=== PATIENT | female | born 1985 | race Two or more races ===

== ENCOUNTER 2021-05-24 08:13 | Day surgery (SDC) | payer OTHER, SELFPAY ==
[2021-05-20 12:10] VITALS: BMI 25.1
[2021-05-24 08:24] VITALS: RESP 18; TEMP 36.2; O2SAT 100
[2021-05-24 08:50] LABS: UPreg QC Valid YES; Urine Pregnancy NEGATIVE (NEGATIVE)
[2021-05-24] MEDS: Lactated Ringers 1,000 ML 50 ML IVCONT (08:52)
--- NOTE | 2021-05-24 09:27 | HO.ANESPROP2 ---
HPI - Anesthesia Eval Consult details Narrative: GERD, Rectal Bleeding PMFSH Past Medical History Medical History (Updated 05/20/21 @ 12:00 by Melani Swenson RN) HTN (hypertension) Mild asthma Family History Family history of problems with anesthesia: No Surgical History Surgical History (Updated 05/20/21 @ 12:10 by Melani Swenson RN) No pertinent past surgical history History of Problems with Anesthesia: No Social History Social History Patient Tobacco Use Status: Tobacco use Unknown Advance Directives: No Advance Directives Information Provided: Yes Advance Directives on File: No Meds Allergies Allergy/AdvReac Type Severity Reaction Status Date / Time No Known Allergies Allergy Verified 05/20/21 12:13 Active Medications: Current Medications Lactated Ringer's (Lr) 1,000 mls @ 50 mls/hr IVCONT .Q20H JOSHUA Last Admin: 05/24/21 08:52 Dose: 50 mls/hr Documented by: Sodium Biphosphate/Sodium Phosphate (Sodium Phosphate,[place]-Dibasic 133 Ml Enema) 133 ml VT ONCE PRN PRN Reason: Poor Colonoscopy Prep Results Home Medications Medication Instructions Recorded Confirmed Last Taken Type L norgest/E estradiol-E estrad 1 tab PO DAILY 05/20/21 05/20/21 Unknown History 0.10 mg-20 mcg (84)/10 mcg(7) tabs,3mos Exam Exam Date and Time: May 24, 2021 0927 Height,Weight and Vital Signs: Height 5 ft 3 in Weight 64.41 kg Last Vital Signs Temp 97.1 F 05/24/21 08:24 Resp 18 05/24/21 08:24 Pulse Ox 100 05/24/21 08:24 Pertinent Lab Results Pertinent Lab Results: Laboratory Tests 05/24/21 08:28 Urine Test NEGATIVE Airway Mallampati Class: II TM Dist: >3cm Neck ROM: Full Loose/Missing/Broken Teeth: No Heart: [id number] Lungs: cta b/l Assessment and Plan Assessment Anesthesia Assessment: Anesthesia Plan Discussed and Chart Reviewed Final Anesthetic Review Family History of Problems with Anesthesia: No History of Problems with Anesthesia: No NPO: Yes ASA Class: I Final Preanesthetic Review: No Changes in Pt Med Stat, Meds/Allgs Chart Reviewed and Anes Risks/Benef Reviewed Patient Risk: Low Procedure Risk: Low Assessment/Block/Sedation in SS: Assess/Block/Sedation-SS Anesthetic Plan Anesthetic Plan: MAC: and Agree w/ Assess. and Plan Disposition: Standard PACU
[2021-05-24 10:41] VITALS: BP 122/64; PULSE 77; RESP 14; TEMP 36.3; O2SAT 99
--- NOTE | 2021-05-24 10:43 | PM.OP ---
Brief Operative Note Date of Service: 05/24/21 Pre-op diagnosis: GERD, Rectal bleeding Post-op diagnosis: other (Small hiatal hernia, Internal hemorrhoids) Procedure: EGD, Colonoscopy to the cecum and TI Surgeon: Jluis Bell Anesthesia: MAC Was an Care Management Assistant used for this Procedure?: No Estimated blood loss (mL): 0 Pathology: none sent Condition: stable Disposition: PACU
[2021-05-24 10:56] VITALS: BP 117/69; PULSE 76; RESP 16; TEMP 36.3; O2SAT 100
--- NOTE | 2021-05-24 11:11 | OP_ITS ---
SURGEON: Jluis Bell MD INDICATIONS: The patient presents for evaluation of gastroesophageal reflux and occasional hematochezia. Full consent was obtained from her for this, including risks of bleeding and perforation. PREOPERATIVE DIAGNOSIS: POSTOPERATIVE DIAGNOSIS: PROCEDURE PERFORMED: ESTIMATED BLOOD LOSS: COMPLICATIONS: ANESTHESIA: Monitored anesthesia care. ASSISTANTS: SPECIMENS: PROCEDURE: Esophagogastroduodenoscopy and colonoscopy to the cecum and terminal ileum. PREOPERATIVE DIAGNOSES: Gastroesophageal reflux and hematochezia. POSTOPERATIVE DIAGNOSES: Gastroesophageal reflux and hematochezia, small hiatal hernia, small internal hemorrhoids. DESCRIPTION OF PROCEDURE: The patient was placed in the left lateral decubitus position. The Olympus video gastroscope was passed in the posterior oropharynx and upper esophagus under direct vision. Scope was passed slowly into the distal esophagus. The gastroesophageal junction appeared normal at 36 cm. There was no sign of any esophagitis nor Turcios's esophagus. Scope entered into the stomach, there was a relatively small hiatal hernia. Scope was advanced to pylorus and duodenum was cannulated to the descending portion. The duodenum including the bulb appeared normal without mass or ulceration. The scope was withdrawn back in the stomach. The gastric antrum and body appeared normal with good peristalsis. Scope was retroflexed visualizing the proximal stomach carefully, which appeared normal, without any sign of mass or ulceration. The scope was straightened and withdrawn back to the esophagus. The esophageal mucosa appeared normal. The scope was withdrawn from the patient. She was turned around for the colonoscopy. The digital rectal exam revealed no abnormalities. The Olympus video pediatric colonoscope was entered into the rectum and advanced easily to the cecum. Once in the cecum I did identify normal-appearing cecal pouch with appendiceal orifice and a normal-appearing ileocecal valve. The terminal ileum was cannulated and appeared normal. Scope was withdrawn back in the colon. The entire cecum and ileocecal valve appeared normal. The scope was slowly withdrawn assessing all mucosal surfaces carefully. Preparation was excellent. I did not visualize any sign of polyps, colitis, nor angiodysplasia. The scope was retroflexed in the rectum visualizing some relatively small internal hemorrhoids, but no other pathology. The rectal mucosa appeared normal. Scope was straightened and withdrawn from the patient. She tolerated both procedures well and was returned to the recovery area in stable condition. IMPRESSION: 1. Relatively small hiatal hernia, otherwise normal upper endoscopy. 2. Small internal hemorrhoids. PLAN: At this point, the patient has been feeling well. She does have a prescription to use famotidine 40 mg for her heartburn on a p.r.n. basis. She will otherwise see me on a p.r.n. basis as well. She was also advised to use some MiraLAX as needed for any constipation. MD KARTIK Hu/ANDIE / [id number]
[2021-05-24 11:15] VITALS: BP 125/69; PULSE 60; RESP 16; O2SAT 100
== END 2021-05-24 12:15 | disposition home or self-care (01) ==
PROVIDERS: Anesthesiology; PCP Internal Medicine; Visit Provider Internal Medicine
PROC: (CPT 45378; principal; 2021-05-24 09:30)
DX: K62.5 Hemorrhage of anus and rectum (principal); K59.00 Constipation, unspecified; K64.8 Other hemorrhoids; K21.9 Gastro-esophageal reflux disease without esophagitis; K44.9 Diaphragmatic hernia without obstruction or gangrene; J45.909 Unspecified asthma, uncomplicated; Z79.899 Other long term (current) drug therapy
CPT/HCPCS: 45378; 43235; 81025; J2250